=== PATIENT | male | born 1995 | race Caucasian/White ===

== ENCOUNTER 2017-10-13 13:32 | Emergency (ER) | payer OTHER ==
[~2017-10-13] VITALS: Ht 190.5 cm; Wt 82.0 kg
[2017-10-13 13:48] VITALS: BP 165/77; PULSE 112; RESP 18; TEMP 98.9; O2SAT 100
[2017-10-13] MEDS ORDERED: TETANUS/DIPHTHERIA TOXOID ADULT 0.5 ML VIAL IM ONE (14:00)
[2017-10-13] MEDS ORDERED: LIDOCAINE 1%/EPINEPHrine 1:100,000 SOLN 20 ML VIAL INFIL ONE (14:00)
[2017-10-13] MEDS ORDERED: KETOROLAC TROMETHAMINE 60 MG/2 ML (IM) VIAL IM ONE (14:00)
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
[2017-10-13] MEDS ORDERED: LIDOCAINE 1%/EPINEPHrine 1:100,000 SOLN 30 ML VIAL ONE (14:10)
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
--- NOTE | 2017-10-13 14:56 | RADRPT ---
EXAM DATE: 10/13/2017 2:37 PM EDT AGE/SEX: 21 years / Male INDICATIONS: Laceration to the right distal anterior tib/fib after dropping glass on it today. CLINICAL DATA: This is the patient's initial encounter. Patient reports that signs and symptoms have been present for 1 day and indicates a pain score of 1/10. MEDICAL/SURGICAL HISTORY: None. None. COMPARISON: No prior exams available for comparison. FINDINGS: Bony structures are intact and in normal alignment. Osseous density is normal. Soft tissues are unre markable. No radiopaque foreign bodies seen. CONCLUSION: Soft tissue defect, no radiopaque foreign body Electronically signed by: Nehemias Lunsford MD 10/13/2017 2:55 PM EDT
[2017-10-13] MEDS ORDERED: TRAM50TA PO (15:41)
[2017-10-13] MEDS ORDERED: IBUP1TAB7 PO (15:41)
[2017-10-13] MEDS ORDERED: CEPH-460 PO (15:41)
[2017-10-13] MEDS ORDERED: MUPI2%T TOPICAL (15:43)
== END 2017-10-13 16:13 | disposition home or self-care (01) ==
LOC: PHEFT 13:32
DX: S81.812A Laceration without foreign body, left lower leg, initial encounter (principal); S81.811A Laceration without foreign body, right lower leg, initial encounter; S62.606A Fracture of unspecified phalanx of right little finger, initial encounter for closed fracture; M79.641 Pain in right hand; F12.90 Cannabis use, unspecified, uncomplicated; Y04.2XXA Assault by strike against or bumped into by another person, initial encounter; W25.XXXA Contact with sharp glass, initial encounter; Y99.0 Civilian activity done for income or pay; Z23 Encounter for immunization
CPT/HCPCS: 12004; 29125; 73130; 73590; 90471; 90714; 96372; 99284; J1885